=== PATIENT | female | born 1955 ===

== ENCOUNTER 2020-12-23 16:45 | Emergency (ER) | payer OTHER ==
[~2020-12-23] VITALS: Ht 157.5 cm; Wt 59.0 kg
[2020-12-23] MEDS ORDERED: METFORMIN HCL1000 MG (17:01)
[2020-12-23] MEDS ORDERED: NORVASC2.5 M1 (17:02)
[2020-12-23] MEDS ORDERED: NAPROXEN375 MG PO (20:02)
[2020-12-23] MEDS ORDERED: INTESTINEX680 M2 PO (20:02)
[2020-12-23] MEDS ORDERED: AMOX1TAB5 PO (20:02)
== END 2020-12-23 20:09 | disposition home or self-care (01) ==
LOC: ER 16:45
DX: S01.82XA Laceration with foreign body of other part of head, initial encounter (principal); W01.198A Fall on same level from slipping, tripping and stumbling with subsequent striking against other object, initial encounter; Y93.89 Activity, other specified; Y92.63 Factory as the place of occurrence of the external cause; Y99.8 Other external cause status

== ENCOUNTER 2020-12-30 13:11 | Emergency (ER) | payer OTHER ==
[~2020-12-30] VITALS: Ht 175.3 cm; Wt 61.2 kg
[~2020-12-30 13:11] MED LIST: AMOX1TAB5 PO; INTESTINEX680 M2 PO; METFORMIN HCL1000 MG; NAPROXEN375 MG PO; NORVASC2.5 M1
== END 2020-12-30 14:38 | disposition home or self-care (01) ==
LOC: ER 13:11
DX: Z48.02 Encounter for removal of sutures (principal)